=== PATIENT | female | born 1995 | race Hispanic/Latino ===

== ENCOUNTER 2024-02-04 17:38 | Emergency (ER) | payer BC | END 2024-02-04 18:23 | disposition home or self-care (01) | LOC: CSHERS 17:38 | DX: L03.114 Cellulitis of left upper limb (principal); F17.290 Nicotine dependence, other tobacco product, uncomplicated; Z79.899 Other long term (current) drug therapy | CPT/HCPCS: 99283 ==

== ENCOUNTER 2024-03-03 08:36 | Emergency (ER) | payer BC, SELFPAY ==
[2024-03-03] MEDS ORDERED: Ibuprofen 200 MG TAB ONE (09:30)
== END 2024-03-03 10:14 | disposition home or self-care (01) ==
LOC: CSHERS 08:36
DX: J18.9 Pneumonia, unspecified organism (principal); F17.290 Nicotine dependence, other tobacco product, uncomplicated
CPT/HCPCS: 71045; 87428